=== PATIENT | male | born 1940 | race African-American/Black ===

== ENCOUNTER 2018-08-24 21:59 | Inpatient (IN) | payer MEDICARE, OTHER ==
[~2018-08-24] VITALS: Ht 175.3 cm; Wt 66.2 kg
--- OUTSIDE RECORDS SUMMARY | 2018-08-24 22:03 | XMS REPORT ---
Author Author [facility] Address Unknown Phone Unavailable Care Team Providers Care Automotive Light Mechanic Name Role Phone Unavailable Unavailable Problems This patient has no known problems. Allergies, Adverse Reactions, Alerts This patient has no known allergies or adverse reactions. Medications This patient has no known medications. Encounters Start Date/Time End Date/Time Encounter Type Admission Type Attending [facility] Care Facility Care Department Encounter ID 2018-05-29 09:46:00 2018-05-29 09:46:00 Emergency E [facility] [id number] 2018-05-20 09:42:00 2018-05-20 09:42:00 Emergency E [facility] [id number]
--- OUTSIDE RECORDS SUMMARY | 2018-08-24 22:03 | XMS REPORT ---
Author Author Dennis Tidwell [facility] eClinicalWorks Address Unknown Phone Unavailable Care Team Providers Care Car Inspection And Repair Manager Name Role Phone Dennis Tidwell CP Unavailable Allergies, Adverse Reactions, Alerts Substance Reaction Event Type N.K.D.A. Info Not Available Non Drug Allergy Encounters Encounter Location Date Follow-Up Dre Means MD, [place] August 15, 2015 Problems Problem Type Condition ICD-9 Code Onset Dates Condition Status Assessment Bruit R09.89 Active Problem Hypercholesterolemia 272.0 Active Assessment CAD without angina I25.10 Active Problem Cardiomyopathy, unspecified I42.9 Active Problem Hypertensive heart disease with heart failure I11.0 Active Problem CAD without angina I25.10 Active Problem Benign hypertensive heart disease with heart failure 402.11 Active Problem Old myocardial infarction 412 Active Problem Bradycardia, unspecified R00.1 Active Problem Coronary atherosclerosis of [place] coronary artery 414.01 Active Assessment Bradycardia, unspecified R00.1 Active Assessment Hypertensive heart disease with heart failure I11.0 Active Assessment CHF, chronic systolic & diastolic I50.42 Active Assessment Cardiomyopathy, unspecified I42.9 Active Medications Medication Code System Code Instructions Start Date End Date Status Dosage Carvedilol [facility] [address]-64 6.25 MG Orally twice a day (bid) August 15, 2015 Active as directed Crestor [facility] [address]-95 40 mg Orally Once a day Jan 26, 2015 Active 1 tablet Losartan Potassium [facility] [address]-32 100 mg Orally Once a day July 10, 2014 Active 1 tablet Clopidogrel Bisulfate [facility] [address]-96 75 mg Orally Once a day Active 1 tablet Zantac [facility] [address]-29 150 MG Orally Twice a day August 09, 2014 Active 1 tablet Atorvastatin Calcium [facility] [address]-84 80 mg Orally Once a day Active 1 tablet Carvedilol [facility] [address]-24 12.5 MG Orally Twice a day August 09, 2014 August 15, 2015 Inactive 1 tablet with food Hydrochlorothiazide [facility] [address]-94 25 MG Orally Once a day August 09, 2014 Active 1 tablet Social History Social History Element Qualifiers Date Reported Tobacco Use: . Are you a: never smoker August 15, 2015 Do you drink alcohol? . Status: Yes August 15, 2015 Vital Signs Date/Time: August 15, 2015 Weight 140 lbs Cardiac Monitoring Heart Rate 56 /min Blood Pressure Diastolic 60 mm Hg Blood Pressure Systolic 115 mm Hg Summary Purpose eClinicalWorks Submission
--- OUTSIDE RECORDS SUMMARY | 2018-08-24 22:03 | XMS REPORT | Continuity of Care Document ---
Author Author [employer] Address Unknown Phone Unavailable Care Team Providers Care Hospital Cook Name Role Phone [employer] Unavailable Unavailable Problems Problem Status Onset Date Classification Date Reported Comments Source Bruit Active Diagnosis 11/23/2015 Dre Means MD, [place] Hypercholesterolemia Active Problem 11/23/2015 Dre Means MD, [place] CAD without angina Active Diagnosis 11/23/2015 Dre Means MD, [place] Cardiomyopathy, unspecified Active Problem 11/23/2015 Dre Means MD, [place] Hypertensive heart disease with heart failure Active Problem 11/23/2015 Dre Means MD, [place] Benign hypertensive heart disease with heart failure Active Problem 11/23/2015 Dre Means MD, [place] Old myocardial infarction Active Problem 11/23/2015 Dre Means MD, [place] Bradycardia, unspecified Active Problem 11/23/2015 Dre Means MD, [place] Coronary atherosclerosis of [place] coronary artery Active Problem 11/23/2015 Dre Means MD, [place] CHF, chronic systolic & diastolic Active Diagnosis 11/23/2015 Dre Means MD, [place] Medications Medication Details Route Status Patient Instructions Ordering Provider Order Date Source Carvedilol as directed Orally Active 6.25 MG Orally twice a day (bid) ze 08/15/2015 Dre Means MD, PA Crestor 1 tablet Orally Active 40 mg Orally Once a day ze 01/26/2015 Dre Means MD, PA Zantac 1 tablet Orally Active 150 MG Orally Twice a day 08/09/2014 Dre Means MD, [place] Carvedilol 1 tablet with food Orally No Longer Active 12.5 MG Orally Twice a day 08/09/2014 Dre Means MD, PA Hydrochlorothiazide 1 tablet Orally Active 25 MG Orally Once a day 08/09/2014 Dre Means MD, PA Losartan Potassium 1 tablet Orally Active 100 mg Orally Once a day 07/10/2014 Dre Means MD, PA Clopidogrel Bisulfate 1 tablet Orally Active 75 mg Orally Once a day Yaw Means MD, PA Atorvastatin Calcium 1 tablet Orally Active 80 mg Orally Once a day Yaw Means MD, PA Allergies, Adverse Reactions, Alerts Substance Category Reaction Severity Reaction type Status Date Reported Comments Source N.K.D.A. Adverse Reaction Info Not Available Adverse Reaction Active 08/15/2015 Dre Means MD, [place] Immunizations No Data Provided for This Section Results No Data Provided for This Section Pathology Reports No Data Provided for This Section Diagnostic Reports No Data Provided for This Section Consultation Notes No Data Provided for This Section Discharge Summaries No Data Provided for This Section History and Physicals No Data Provided for This Section Vital Signs Vital Sign Value Date Comments Source Weight 140 08/15/2015 Dre Means MD, [place] Heart Rate 56 08/15/2015 Dre Means MD, PA Diastolic (mm Hg) 60 08/15/2015 Dre Means MD, PA Systolic (mm Hg) 115 08/15/2015 Dre Means MD, [place] Encounters Location Location Details Encounter Type Encounter Number Reason For Visit Attending Provider ADM Date DC Date Status Source Dre Means MD, [place] Follow-Up [id number] 08/15/2015 08/15/2015 Dre Means MD, [place] Procedures No Data Provided for This Section Assessment and Plan No Data Provided for This Section Plan of Care No Data Provided for This Section Social History Social History Date Source Social History ElementQualifiersDate Reported Tobacco Use: . Are you a: never smoker August 15, 2015 Do you drink alcohol? . Status: Yes August 15, 2015 08/15/2015 Dre Means MD, PA Family History No Data Provided for This Section Advance Directives No Data Provided for This Section Functional Status No Data Provided for This Section
--- NOTE | 2018-08-24 23:03 | Diagnostic Imaging Report ---
EXAMINATION: CXR 1 VIEW - HOPD COMPARISON: None INDICATION: Dizziness, altered level of consciousness DISCUSSION: Frontal view of the chest obtained at 2245 hours. HEART AND MEDIASTINUM: The cardiomediastinal silhouette is unremarkable. LINES: None. LUNGS: The lungs are well inflated and clear. No pneumonia or pulmonary edema. PLEURA: No pleural effusion or pneumothorax. BONES AND SOFT TISSUES: No focal osseous lesion. The soft tissues are normal. IMPRESSION: No acute cardiopulmonary disease. Signed by: Dr. Des Hassan MD on 08/24/2018 11:00 PM
[2018-08-24] MEDS ORDERED: POTASSIUM CHLORIDE 20 MEQ TAB CR PO STA (23:40)
--- OUTSIDE RECORDS SUMMARY | 2018-08-24 23:43 | XMS REPORT | Continuity of Care Document ---
Author Author [email or web address] Address Unknown Phone Unavailable Care Team Providers Care Storage Brine Worker Name Role Phone [employer] Unavailable Unavailable Problems Problem Status Onset Date [...] Dre Means MD, PA Coronary atherosclerosis of [place] coronary artery Active Problem 11/23/2015 Dre Means [...] Status Source Dre Means MD, PA Follow-Up [id number] 08/15/2015 08/15/2015 Dre Means MD, [place] Procedures [...]
[2018-08-24] MEDS ORDERED: ONDANSETRON HCL INJ 2MG/ML 2ML 2 MG/ML VIAL IV PRN (23:45)
[2018-08-24] MEDS ORDERED: ASPIRIN 81 MG CHEW TAB PO ONE (23:45)
[2018-08-24] MEDS: SODIUM CHLORIDE 0.9% 1000ML 1,000 ML IV SCH (23:50)
[2018-08-25] VITALS (17 sets, daily range): BP systolic 94–140; BP diastolic 55–77
--- NOTE | 2018-08-25 01:00 | NUR ---
Pt arrived via EMS from freestanding ER. Pt AAO x4, appears in no distress.
[2018-08-25] MEDS ORDERED: CLOPIDOGREL75 MG PO (01:16)
[2018-08-25] MEDS ORDERED: HYDROCHLOROTHIA25 MG PO (01:16)
[2018-08-25] MEDS ORDERED: CARVEDILOL12.5 MG PO (01:16)
[2018-08-25] MEDS ORDERED: LOSARTAN POTASS25 MG PO (01:16)
[2018-08-25] MEDS ORDERED: ASPIRIN81 MG PO (01:16)
--- NOTE | 2018-08-25 05:22 | NUR ---
Consult for Dr. Moore called, left message @ 05:20
[2018-08-25 06:45] LABS: BASOPHILS % 0.5 % (0.0-1.0); EOSINOPHILS # (AUTO) 0.1 (0.0-0.4); EOSINOPHILS % 1.1 % (0.0-6.0); HEMATOCRIT 26.7 % (38.2-49.6); HEMOGLOBIN 8.4 g/dL (14.0-18.0); LYMPHOCYTES # (AUTO) 1.3 (1.0-3.2); LYMPHOCYTES % 28.7 % (18.0-39.1); MEAN CORPUSCULAR HEMOGLOBIN 26.4 pg (28-32); MEAN CORPUSCULAR HGB CONC 31.5 g/dL (31-35); MONOCYTES # (AUTO) 0.5 (0.2-0.8); MONOCYTES % 10.3 % (4.4-11.3); NEUTROPHILS # (AUTO) 2.6 (2.1-6.9); NEUTROPHILS % 59.2 % (38.7-80.0); PLATELET COUNT 262 x10e3/uL (140-360); RED BLOOD COUNT 3.18 x10e6/uL (4.3-5.7); RED CELL DISTRIBUTION WIDTH 17.2 % (11.7-14.4)
[2018-08-25 07:40] LABS: CREATINE KINASE MB 1.4 ng/mL (0-5.0)
[2018-08-25 07:42] LABS: ALBUMIN 2.8 g/dL (3.5-5.0); ALBUMIN/GLOBULIN RATIO 1.1 (0.8-2.0); CALCIUM 8.4 mg/dL (8.4-10.2); CREATININE, SERUM 1.58 mg/dL (0.72-1.25); MAGNESIUM 1.9 MG/DL (1.3-2.1)
[2018-08-25] MEDS: LOSARTAN POTASSIUM 25 MG TAB PO SCH (09:00)
[2018-08-25] MEDS: HYDROCHLOROTHIAZIDE 25 MG TAB PO SCH (09:00)
[2018-08-25] MEDS: CARVEDILOL 12.5 MG TAB PO SCH ×2 (09:00→16:07)
[2018-08-25] MEDS: ASPIRIN 81 MG CHEW TAB PO SCH (09:37)
[2018-08-25] MEDS: CLOPIDOGREL BISULFATE 75 MG TAB PO SCH (09:38)
--- NOTE | 2018-08-25 12:24 | Consultation ---
DATE OF CONSULTATION: 08/25/2018 Cardiology Consultation HISTORY OF PRESENT ILLNESS: This is a 78-year-old male who states that after eating dinner, he began to feel dizzy and upon walking up stairs, he felt nauseous, cold, diaphoretic, and subsequently vomited. He denies any josefina syncope. He did also report some mptu-[id number] shortness of breath. Denies any chest discomfort or angina. He has a prior history of myocardial infarction, however, states that "every thing was okay." The patient denies having any percutaneous coronary intervention. He also denies any congestive heart failure or arrhythmias. He follows with Dr. Tidwell at [facility]. REVIEW OF SYSTEMS: A 12-point review of system was conducted and is negative except as dictated above in the HPI. PAST MEDICAL HISTORY: As stated above in the HPI. FAMILY HISTORY: Noncontributory. PAST SURGICAL HISTORY: Cardiac catheterization. SOCIAL HISTORY: No illicit drug, alcohol, or tobacco use. ALLERGIES: NO KNOWN DRUG ALLERGIES. MEDICATIONS: See medication reconciliation form. PHYSICAL EXAMINATION: VITAL SIGNS: Temperature is 97.9, heart rate is 51, respirations are 14, blood pressure is 111/69, and oxygen saturation is 100% on room air. GENERAL: Well appearing, well built, no apparent distress. Alert and orient x3. HEENT: Head is normocephalic, atraumatic. Eyes, the extraocular muscles are intact. Conjunctivae clear. NECK: No JVD. No bruits. CARDIOVASCULAR: He is bradycardic. Regular rhythm. No murmurs. LUNGS: Clear to auscultation. ABDOMEN: Soft, nontender, nondistended. EXTREMITIES: No clubbing, cyanosis, or edema. VASCULAR: 2+ pulses. NEUROLOGIC: No focal deficits noted. CARDIOVASCULAR MEDICATIONS: Reviewed. LABORATORY DATA: Reviewed. Hemoglobin 8.4. Creatinine is 1.5. Troponin I 0.01. IMPRESSION: 1. Near syncope. 2. Bradycardia. 3. History of hypertension. RECOMMENDATIONS: Continue gentle fluid hydration. Reduce carvedilol given bradycardia. Continue losartan, however, at lower dose 25 mg with holding parameters. We will check a 2D echocardiogram. Continue to monitor on telemetry. If his echocardiogram is within normal limits and his vital signs remained stable, he may be discharged from a cardiovascular standpoint with outpatient with his regular decision support manager. DO DOREEN Bynum /[id number]
--- NOTE | 2018-08-25 14:05 | NUR ---
PT DISCUSSED IN BARRIER ROUNDS, POSSIBLE DOWNGRADE TO FLOOR, NAUSEAA AND VOMITING HEART RATE IS LOW HAS ORDERS FOR ECHO AND CAR DOPPLER.
[2018-08-25] MEDS: SODIUM CHLORIDE 0.9% 1000ML 1,000 ML IV SCH (14:21)
[2018-08-25 15:56] LABS: CREATINE KINASE 56 IU/L (30-200)
--- NOTE | 2018-08-25 17:21 | NUR ---
Patient ambulated well to the bathroom and vitals remained stable. Patient denies any s/s of syncope. Patient did not receive any blood pressure meds (systolic BP less than 115 during the shift and running sinus bradycardia). Echo and carotid doppler done today. Will continue to monitor the patient.
[2018-08-26] VITALS (9 sets, daily range): BP systolic 102–139; BP diastolic 60–77
[2018-08-26] MEDS: SODIUM CHLORIDE 0.9% 1000ML 1,000 ML IV SCH ×2 (04:43→16:10)
[2018-08-26 05:04] LABS: BASOPHILS % 0.8 % (0.0-1.0); EOSINOPHILS # (AUTO) 0.1 (0.0-0.4); EOSINOPHILS % 1.6 % (0.0-6.0); HEMATOCRIT 25.4 % (38.2-49.6); HEMOGLOBIN 7.8 g/dL (14.0-18.0); LYMPHOCYTES % 26.3 % (18.0-39.1); MEAN CORPUSCULAR HEMOGLOBIN 26.1 pg (28-32); MEAN CORPUSCULAR HGB CONC 30.7 g/dL (31-35); MEAN CORPUSCULAR VOLUME 84.9 fL (81-99); MONOCYTES # (AUTO) 0.4 (0.2-0.8); MONOCYTES % 11.4 % (4.4-11.3); NEUTROPHILS # (AUTO) 2.2 (2.1-6.9); NEUTROPHILS % 59.6 % (38.7-80.0); PLATELET COUNT 222 x10e3/uL (140-360); RED BLOOD COUNT 2.99 x10e6/uL (4.3-5.7); RED CELL DISTRIBUTION WIDTH 17.3 % (11.7-14.4)
[2018-08-26 05:29] LABS: ANION GAP 10.5 mmol/L (8-16); BLOOD UREA NITROGEN 11 mg/dL (7-26); BUN/CREATININE RATIO 8 (6-25); CALCIUM 8.3 mg/dL (8.4-10.2); CARBON DIOXIDE 25 mmol/L (22-29); CHLORIDE 104 mmol/L (98-107); CREATININE, SERUM 1.33 mg/dL (0.72-1.25); EST GLOMERULAR FILTRATION RATE > 60 ML/MIN (60-); GLUCOSE 99 mg/dL (74-118); POTASSIUM 3.5 mmol/L (3.5-5.1); SODIUM 136 mmol/L (136-145)
[2018-08-26 05:46] LABS: ALANINE AMINOTRANSFERASE 6 IU/L (0-55); ALBUMIN 2.5 g/dL (3.5-5.0); ALKALINE PHOSPHATASE 53 IU/L (40-150); MAGNESIUM 1.8 MG/DL (1.3-2.1)
--- NOTE | 2018-08-26 08:00 | NUR ---
Patient transferred to Med-Surg room #215. Report given to RN prior to transfer. Patient does not appear to be in any s/s of distress.
[2018-08-26] MEDS: HYDROCHLOROTHIAZIDE 25 MG TAB PO SCH (09:09)
[2018-08-26] MEDS: ASPIRIN 81 MG CHEW TAB PO SCH (09:09)
[2018-08-26] MEDS: CLOPIDOGREL BISULFATE 75 MG TAB PO SCH (09:09)
[2018-08-26] MEDS: LOSARTAN POTASSIUM 25 MG TAB PO SCH (09:10)
--- NOTE | 2018-08-26 12:00 | NUR ---
BEDSIDE SHIFT REPORT RECEIVED FROM THE RN. PT DENIES NEEDS AT THIS TIME.
--- NOTE | 2018-08-26 17:19 | Progress Note ---
DATE: 08/26/2018 Cardiology Progress Note SUBJECTIVE: The patient states that he feels very well. He denies any near syncope episode or dizziness. Denies any chest pain or shortness of breath. OBJECTIVE: VITAL SIGNS: Temperature 98.2, pulse 56, respiratory rate 18, blood pressure 139/68, oxygen saturation 90% on room air. GENERAL: Alert and oriented x3, resting comfortably in bed, does not appear to be in any acute distress. NECK: Supple. No JVD noted. CARDIOVASCULAR: Bradycardic. Regular rate and rhythm. Systolic murmur present. LUNGS: Diminished breath sounds in right lower lobe, otherwise clear to auscultation. ABDOMEN: Soft nontender. LOWER EXTREMITIES: No edema. CARDIOVASCULAR MEDICATIONS: Hydrochlorothiazide 25 mg p.o. daily, losartan 50 mg p.o. daily, aspirin 81 mg p.o. daily, Plavix 75 mg p.o. daily, and Coreg 25 mg p.o. b.i.d. LABORATORY DATA: WBC 3.69, hemoglobin 7.8, hematocrit 25.4, platelets 222. Sodium 136, potassium 3.5, BUN 11, creatinine 1.33. IMPRESSION: 1. Near syncope. 2. Bradycardia. 3. Hypertension. RECOMMENDATION: Decrease the dose of carvedilol. Continue to monitor on telemetry. The patient feels better status post IV hydration. Echocardiogram completed and indicates mild left ventricular hypertrophy, ejection fraction calculated to be 52%, moderate aortic valve sclerosis without stenosis. We will continue to follow this patient. He is to follow up with Dr. Zelaya in 1-2 weeks after discharge. Dictated by Catarina Shepherd, RAÚL MD KERLINE Stevenson/SAMANTHA /[id number]
[2018-08-26] MEDS: CARVEDILOL 12.5 MG TAB PO SCH (18:19)
--- NOTE | 2018-08-26 19:00 | NUR ---
BEDSIDE SHIFT REPORT GIVEN TO THE COUNTER TOP MAKER RN. PT DENIED FURTHER NEEDS.
[2018-08-27 00:30] VITALS: BP 139/67
[2018-08-27 04:00] VITALS: BP 144/72
[2018-08-27] MEDS: SODIUM CHLORIDE 0.9% 1000ML 1,000 ML IV SCH (04:52)
[2018-08-27 06:13] LABS: BASOPHILS % 0.6 % (0.0-1.0); EOSINOPHILS # (AUTO) 0.1 (0.0-0.4); EOSINOPHILS % 1.9 % (0.0-6.0); HEMATOCRIT 28.6 % (38.2-49.6); LYMPHOCYTES % 21.9 % (18.0-39.1); MEAN CORPUSCULAR HEMOGLOBIN 26.5 pg (28-32); MEAN CORPUSCULAR HGB CONC 30.8 g/dL (31-35); MEAN CORPUSCULAR VOLUME 86.1 fL (81-99); MONOCYTES # (AUTO) 0.5 (0.2-0.8); MONOCYTES % 9.7 % (4.4-11.3); NEUTROPHILS # (AUTO) 3.1 (2.1-6.9); NEUTROPHILS % 65.5 % (38.7-80.0); PLATELET COUNT 236 x10e3/uL (140-360); RED BLOOD COUNT 3.32 x10e6/uL (4.3-5.7); RED CELL DISTRIBUTION WIDTH 17.5 % (11.7-14.4)
[2018-08-27 06:14] LABS: HEMOGLOBIN 8.8 g/dL (14.0-18.0)
--- NOTE | 2018-08-27 07:00 | NUR ---
BEDSIDE SHIFT REPORT RECEIVED FROM THE ORE DRESSING ENGINEER RN. PT DENIES NEEDS AT THIS TIME.
--- NOTE | 2018-08-27 07:01 | NUR ---
PER THE ROTOR COIL TAPER RN, ALL MEDICATIONS ADMINISTERED DURING THE ROTOR COIL TAPER BUT UNABLE TO DOCUMENT DUE TO [place] LOGIN ISSUES. INFORMED THE SAME TO THE PHARMACY.
[2018-08-27 08:18] VITALS: BP 143/82
[2018-08-27 09:00] VITALS: BP 143/82
[2018-08-27] MEDS: ASPIRIN 81 MG CHEW TAB PO SCH (09:21)
[2018-08-27] MEDS: CARVEDILOL 12.5 MG TAB PO SCH (09:22)
[2018-08-27] MEDS: HYDROCHLOROTHIAZIDE 25 MG TAB PO SCH (09:23)
[2018-08-27] MEDS: LOSARTAN POTASSIUM 25 MG TAB PO SCH (09:23)
[2018-08-27] MEDS: CLOPIDOGREL BISULFATE 75 MG TAB PO SCH (09:23)
--- NOTE | 2018-08-27 10:06 | NUR ---
PAGED DR. BRENNAN REGARDING PT DISCHARGE. WAITING FOR THE UPDATE.
--- NOTE | 2018-08-27 11:00 | NUR ---
OKAY TO DISCHARGE AND CONTINUE HOME MEDS PER DR. BRENNAN.
--- NOTE | 2018-08-27 11:54 | NUR ---
PT DISCHARGED HOME SAFELY WITH FAMILY. TELE AND IV REMOVED.TIP INTACT. DRESSING APPLIED. MEDICATION REGIMEN AND DOSAGE EDUCATION GIVEN. PT VERBALIZED UNDERSTANDING. PT DENIED FURTHER NEEDS.
--- NOTE | 2018-09-08 21:28 | Discharge Summary ---
DISCHARGE DIAGNOSES: 1. Syncope. 2. Bradycardia. 3. Anemia. HISTORY OF PRESENT ILLNESS AND HOSPITAL COURSE: See hospital chart for full details. The patient is a gentleman, who had a syncopal episode while he was sitting down, where it did not last very long. It appeared to almost be vagal like, but when he was brought into the emergency room, he found to have some slight anemia that was stable during his hospitalization, but he did note to have some bradycardia while he was taking a beta-jessica. He was seen by Cardiology, who discontinued beta-jessica, which improved his bradycardia up into around the 60 range, where he had no further symptoms in the hospital. He did not want any further cardiac workup and he will follow up as an outpatient with a social insurance administrator and his PCP in 1 to 2 weeks. At the time of discharge, he was feeling great, had no other symptoms. No other issues while he was in the hospital. Please see hospital chart for full details. MD CHARLOTTE Luo/SAMANTHA /[id number]
== END 2018-08-27 11:53 | disposition home or self-care (01) | DRG 309 ==
LOC: FSED 21:59 → ERHOLD 23:32 → ICU 08-25 01:00 → MED/SURG2 08-26 08:13
PROVIDERS: ADMIT Internal Medicine; ATTEND Internal Medicine
DX: R00.1 Bradycardia, unspecified (principal); I50.22 Chronic systolic (congestive) heart failure; I10 Essential (primary) hypertension; I11.0 Hypertensive heart disease with heart failure; D64.9 Anemia, unspecified; E87.6 Hypokalemia
CPT/HCPCS: 36415; 71045; 80048; 80053; 80076; 82550; 82553; 83735; 83880; 84484; 85025; 85379; 85610; 93005; 93306; 93880; 99284; J7030

== ENCOUNTER 2018-08-29 20:46 | Emergency (ER) | payer MEDICARE ==
[~2018-08-29] VITALS: Ht 175.3 cm; Wt 66.2 kg
[~2018-08-29 20:46] MED LIST: ASPIRIN81 MG PO; CARVEDILOL12.5 MG PO; CLOPIDOGREL75 MG PO; HYDROCHLOROTHIA25 MG PO; LOSARTAN POTASS25 MG PO
--- OUTSIDE RECORDS SUMMARY | 2018-08-29 20:49 | XMS REPORT | Continuity of Care Document ---
Author Author [employer] Address Unknown Phone Unavailable Care Team Providers Care Intelligence Manager Name Role Phone [employer] Information [employer] Unavailable Unavailable Problems Problem Status Onset Date [...] Dre Means MD, PA Coronary atherosclerosis of [place] coronary artery Active Problem 11/23/2015 Dre Means [...] PA Diastolic (mm Hg) 60 08/15/2015 Dre Maens MD, PA Systolic (mm Hg) 115 08/15/2015 Dre Means MD, [place] Encounters Location Location Details Encounter Type Encounter Number Reason For Visit Attending Provider ADM Date DC Date Status Source Dre Means MD, PA Follow-Up [id number] 08/15/2015 08/15/2015 Dre Means MD, [place] Procedures [...]
[2018-08-29 21:40] VITALS: BP 147/89
== END 2018-08-29 21:43 | disposition home or self-care (01) ==
LOC: ER 20:46
DX: I10 Essential (primary) hypertension (principal); E78.5 Hyperlipidemia, unspecified; I25.2 Old myocardial infarction
CPT/HCPCS: 99282

== ENCOUNTER 2018-10-22 14:44 | Emergency (ER) | payer MEDICARE ==
[~2018-10-22] VITALS: Ht 175.3 cm; Wt 66.2 kg
--- OUTSIDE RECORDS SUMMARY | 2018-10-22 14:46 | XMS REPORT | Continuity of Care Document ---
Author Author [employer] Address Unknown Phone Unavailable Care Team Providers Care Certified Registered Dental Assistant Name Role Phone [employer] Information [employer] Unavailable Unavailable Problems Problem Status Onset Date [...] Dre Means MD, PA Coronary atherosclerosis of [place] coronary artery Active Problem 11/23/2015 Dre Means [...] Status Source Dre Means MD, PA Follow-Up [id number] 08/15/2015 08/15/2015 Dre Means MD, [place] Procedures [...]
[2018-10-22] MEDS ORDERED: ASPIRIN 81 MG CHEW TAB PO ONE (15:15)
--- NOTE | 2018-10-22 15:55 | NUR ---
PATIENT TO ER ROOM 9 AT THIS TIME
[2018-10-22 16:11] LABS: BASOPHILS # (AUTO) 0.1 (0.0-0.1); BASOPHILS % 0.8 % (0.0-1.0); EOSINOPHILS # (AUTO) 0.1 (0.0-0.4); EOSINOPHILS % 1.6 % (0.0-6.0); HEMATOCRIT 26.1 % (38.2-49.6); HEMOGLOBIN 8.2 g/dL (14.0-18.0); LYMPHOCYTES # (AUTO) 1.4 (1.0-3.2); LYMPHOCYTES % 23.4 % (18.0-39.1); MEAN CORPUSCULAR HEMOGLOBIN 27.9 pg (28-32); MEAN CORPUSCULAR HGB CONC 31.4 g/dL (31-35); MEAN CORPUSCULAR VOLUME 88.8 fL (81-99); MONOCYTES # (AUTO) 0.6 (0.2-0.8); MONOCYTES % 10.5 % (4.4-11.3); NEUTROPHILS # (AUTO) 3.9 (2.1-6.9); NEUTROPHILS % 63.4 % (38.7-80.0); PLATELET COUNT 396 x10e3/uL (140-360); RED BLOOD COUNT 2.94 x10e6/uL (4.3-5.7)
[2018-10-22 16:31] LABS: ALANINE AMINOTRANSFERASE 9 IU/L (0-55); ALBUMIN 3.2 g/dL (3.5-5.0); ALBUMIN/GLOBULIN RATIO 1.1 (0.8-2.0); ALKALINE PHOSPHATASE 63 IU/L (40-150); ANION GAP 14.1 mmol/L (8-16); BLOOD UREA NITROGEN 15 mg/dL (7-26); BUN/CREATININE RATIO 11 (6-25); CALCIUM 9.2 mg/dL (8.4-10.2); CARBON DIOXIDE 26 mmol/L (22-29); CHLORIDE 93 mmol/L (98-107); CREATINE KINASE 51 IU/L (30-200); CREATININE, SERUM 1.39 mg/dL (0.72-1.25); EST GLOMERULAR FILTRATION RATE 60 ML/MIN (60-); GLUCOSE 93 mg/dL (74-118); POTASSIUM 4.1 mmol/L (3.5-5.1); SODIUM 129 mmol/L (136-145)
[2018-10-22] MEDS ORDERED: SODIUM CHLORIDE 0.9% 1000ML 1,000 ML IV SCH (17:30)
[2018-10-22 17:41] LABS: BILIRUBIN,URINE NEGATIVE (NEGATIVE); CLARITY,URINE CLEAR (CLEAR); COLOR,URINE YELLOW (YELLOW); KETONES,URINE NEGATIVE (NEGATIVE); LEUKOCYTE ESTERASE ,URINE NEGATIVE (NEGATIVE); NITRITE,URINE NEGATIVE (NEGATIVE); PROTEIN,URINE DIPSTICK NEGATIVE (NEGATIVE); URINE UROBILINOGEN 0.2 mg/dL (0.2 - 1)
[2018-10-22 17:54] LABS: EPITHELIAL CELLS,URINE RARE /LPF
[2018-10-22 19:42] LABS: INR 0.91; PARTIAL THROMBOPLASTIN TIME 31.9 seconds (23.8-35.5); PROTHROMBIN TIME 12.7 seconds (11.9-14.5)
--- NOTE | 2018-10-22 22:00 | Diagnostic Imaging Report ---
Chest, 1 view, 10/22/2018. History: Chest pain. Comparison: 08/24/2018. Findings: The cardiomediastinal silhouette and pulmonary vasculature are within normal limits for a portable exam. There is no focal consolidation or pleural effusion. There are no acute osseous or soft tissue abnormalities. Impression: No acute cardiopulmonary abnormality. Signed by: Geovany Blackmon on 10/22/2018 4:03 PM
--- NOTE | 2018-10-22 22:41 | Diagnostic Imaging Report ---
EXAMINATION: Head CT without contrast. HISTORY:Dizziness. COMPARISON:None. TECHNIQUE: Multidetector axial images were obtained from the foramen magnum to the vertex without contrast. The images were reconstructed using brain and bone algorithms. Thin section brain images were reformatted into coronal and sagittal planes. Dose modulation, iterative reconstruction, and/or weight based adjustment of the mA/kV was utilized to reduce the radiation dose to as low as reasonably achievable. Intravenous contrast: None IMAGE QUALITY: Acceptable. FINDINGS: Skull/scalp: No lytic or blastic. lesions. No surgical changes. Parenchyma: Nonspecific few, scattered bilateral frontoparietal white matter hypodensity are likely related to small vessel ischemic changes. No acute hemorrhage, mass or acute major vascular territorial infarct. Arteries: No density suggestive of thrombosis. Atherosclerotic calcification in bilateral carotid siphon. Dural sinuses: No abnormal density suggestive of thrombosis. Ventricles: No hydrocephalus or displacement. Extra-axial spaces: No abnormal density. Brain volume: Mild generalized cerebral volume loss. Craniocervical junction: No mass, Chiari malformation, or basilar invagination. Sella: No mass. Paranasal/mastoid sinuses: Imaged portions unremarkable. IMPRESSION: No acute intracranial abnormality. Mild supratentorial white matter microvascular ischemic changes. Mild generalized cerebral volume loss. Signed by: Dr. Ana María Valentin M.D. on 10/22/2018 10:38 PM
== END 2018-10-22 23:20 | disposition home or self-care (01) ==
LOC: ER 14:44
DX: R42 Dizziness and giddiness (principal); R51 Headache; E87.1 Hypo-osmolality and hyponatremia; D64.9 Anemia, unspecified; I10 Essential (primary) hypertension; E78.5 Hyperlipidemia, unspecified; I25.2 Old myocardial infarction
CPT/HCPCS: 36415; 70450; 71045; 80053; 81001; 82550; 82553; 83880; 84484; 85025; 85610; 85730; 93005; 99284; J7030